=== PATIENT | male | born 1950 | race Caucasian/White ===

== ENCOUNTER 2017-04-09 09:34 | Emergency (ER) | payer OTHER, MEDICARE ==
[2017-04-09] MEDS ORDERED: LIDOCAINE 1% 100 MG in NS 100 ML IV ONE (09:49)
[2017-04-09] MEDS ORDERED: ONDANSETRON 4 MG/2 ML VIAL IVP ONE (09:49)
[2017-04-09] MEDS ORDERED: NS 1,000 ML IV ONE (09:49)
--- NOTE | 2017-04-09 09:52 | EDPHY ---
H & P Time Seen by Provider: 04/09/17 09:40 HPI/ROS: CHIEF COMPLAINT: Left flank pain HISTORY OF PRESENT ILLNESS: Patient awakened this morning because his dog was barking. He shortly thereafter noticed left flank pain which radiated into his groin and penis and was associated with a feeling of needing to urinate. Symptoms were severe and now is moderate. He had some dry heaving, but no diarrhea. No recent injury fall or trauma. Not better worse with position. REVIEW OF SYSTEMS: Eye: no change in vision ENT: no sore throat Cardiac: no chest pain or syncope Pulmonary: no cough or SOB Abdomen: HPI Musculoskeletal: HPI Skin: no rash Neuro: no headache, no weakness or numbness in extremities Constitutional: no fever : no urinary symptoms A comprehensive 10 point review of systems is otherwise negative aside from elements mentioned in the history of present illness. PAST MEDICAL HISTORY: Coronary disease with stenting, right hip replacement Family history: Negative for renal colic Social history: Nonsmoker General Appearance: Alert and conversant, cooperative. Eyes: No scleral icterus. ENT, Mouth: Normal mucous membranes. Respiratory: Normal respiratory effort, breath sounds equal, lungs are clear to auscultation. Cardiovascular: Regular rate and rhythm. Gastrointestinal: Abdomen is soft and non tender. Male normal. Neurological: Alert and oriented x3. Normally conversant. Face symmetric, normal movement and sensation in all extremities. Skin: Warm and dry, no rashes. No evidence of zoster on the left flank. Musculoskeletal: No peripheral edema and no joint swelling. Psychiatric: Not agitated. Emergency Department course/MDM: Lidocaine 100 mg IV, Toradol 15 mg IV, noncontrast CT scanning discussed and consented. Possibility of renal colic considered. 1150: Results discussed, likely passed a kidney stone. Much improved now without pain. 1555: Discussed with Cynthia at [facility] office, they will arrange followup of the CT findings. Smoking Status: Former smoker Constitutional: Initial Vital Signs Temperature (C) 36.2 C 04/09/17 09:40 Heart Rate 60 04/09/17 09:40 Respiratory Rate 16 04/09/17 09:40 Blood Pressure 125/84 H 04/09/17 09:40 O2 Sat (%) 97 04/09/17 09:40 O2 Delivery Mode Room Air Allergies/Adverse Reactions: No Known Allergies Allergy (Unverified 01/01/12 08:33) Home Medications: Medication Instructions Recorded Aspirin EC [Aspirin EC 81 mg (*)] 81 mg PO HS 01/10/16 Atorvastatin Calcium [Lipitor 80 80 mg PO HS 01/10/16 mg] Clopidogrel Bisulfate [Plavix (*)] 37.5 mg PO HS 01/10/16 Ezetimibe [Zetia 10 MG (*)] 10 mg PO HS 01/10/16 Herbals/Supplements -Info Only 1 ea PO DAILY 01/10/16 Metoprolol Tartrate [Lopressor 25 12.5 mg PO HS 01/10/16 mg (*)] Multivitamins W-Minerals [Thera M 1 tab PO DAILY 01/10/16 Plus Tablet (*)] Acetaminophen [Tylenol 325mg (*)] 325 - 650 mg PO Q6 PRN #0 tab 02/03/16 Medical Decision Making - Diagnostics Imaging Results: Imaging Impressions Abdomen/Pelvis CT 04/09/17 09:49 Impression: 1. Mild left hydronephrosis and hydroureter. No evidence for an obstructive calculus which may have already passed. A component of pyelonephritis cannot be excluded. Nonobstructive nephrolithiasis inferior pole left kidney. 2. 7.6 cm exophytic renal cortical cyst left kidney. It appears minimally complex with a mildly thickened wall. Consider follow up. 3. Moderate constipation. 4. Degenerative disk and degenerative joint disease lower lumbar spine. Results called and discussed with Lester Grossman at 11:24 a.m. on April 09, 2017. Attention: This CT examination is specifically designed to evaluate patients who are clinically suspected of having acute obstructive uropathy. This examination does not use radiographic contrast, and as such, provides only a limited evaluation of the abdomen, pelvis and retroperitoneum. If there is further clinical suspicion for pathological conditions other than obstructive uropathy, a complete CT evaluation of the abdomen and pelvis utilizing intravenous, oral, and rectal contrast should be considered. Differential Diagnosis: Differential considered including but not limited to kidney stone, aortic aneurysm, shingles, musculoskeletal. - Data Points Laboratory Results: 04/09/17 04/09/17 10:15 09:58 POC Hgb 16.7 gm/dL gm/dL (13.7-17.5) POC Hct 49 % % (40-51) POC Sodium 140 mEq/L mEq/L (134-144) POC Potassium 4.3 mEq/L mEq/L (3.3-5.0) POC Chloride 102 mEq/L mEq/L (97-110) POC BUN 23 mg/dL mg/dL (7-23) POC Creatinine 1.0 mg/dL mg/dL (0.7-1.3) POC Glucose 106 mg/dL H mg/dL (70-100) Urine Color YELLOW Urine Appearance HAZY Urine pH 7.0 (5.0-7.5) Ur Specific [place] 1.023 (1.002-1.030) Urine Protein NEGATIVE (NEGATIVE) Urine Ketones NEGATIVE (NEGATIVE) Urine Blood 3+ H (NEGATIVE) Urine Nitrate NEGATIVE (NEGATIVE) Urine Bilirubin NEGATIVE (NEGATIVE) Urine Urobilinogen NEGATIVE EU EU (0.2-1.0) Ur Leukocyte Esterase NEGATIVE (NEGATIVE) Urine RBC 50-182 /hpf H /hpf (0-3) Urine WBC 1-3 /hpf /hpf (0-3) Ur Epithelial Cells NONE SEEN /lpf /lpf (NONE-1+) Amorphous Sediment PRESENT /hpf /hpf (NONE-1+) Urine Mucus TRACE /lpf /lpf (NONE-1+) Urine Glucose NEGATIVE (NEGATIVE) Medications Given: Discontinued Medications Sodium Chloride (Ns) 1,000 mls @ 0 mls/hr IV EDNOW ONE; Wide Open PRN Reason: Protocol Stop: 04/09/17 09:50 Last Admin: 04/09/17 10:00 Dose: 1,000 mls Lidocaine HCl 100 mg/ Sodium (Chloride) 110 mls @ 600 mls/hr IV EDNOW ONE Stop: 04/09/17 09:59 Last Admin: 04/09/17 10:46 Dose: 110 mls Ketorolac Tromethamine (Toradol) 15 mg IVP EDNOW ONE Stop: 04/09/17 10:18 Last Admin: 04/09/17 10:43 Dose: 15 mg Ondansetron HCl (Zofran) 4 mg IVP EDNOW ONE Stop: 04/09/17 09:50 Last Admin: 04/09/17 10:03 Dose: 4 mg Promethazine HCl (Phenergan) 6.25 mg IVP ONCE ONE Stop: 04/09/17 10:41 Last Admin: 04/09/17 10:44 Dose: 6.25 mg Point of Care Test Results: 04/09/17 09:58 POC Sodium 140 POC Potassium 4.3 POC Chloride 102 POC BUN 23 POC Creatinine 1.0 POC Glucose 106 H Departure - Departure Disposition: Home, Routine, Self-Care Clinical Impression: Renal colic on left side Condition: Good Instructions: Renal Colic (ED) Additional Instructions: Strain urine as directed, bring any stone collected to Dr. Garcia's office. Referrals: Neal Garcia MD [Primary Care Provider] - As per Instructions (followup this week in the office)
[2017-04-09] MEDS ORDERED: KETOROLAC 15 MG/1 ML SDV IVP ONE (10:17)
[2017-04-09 10:27] LABS: COLOR YELLOW; LEUKOCYTE ESTERASE,URINE NEGATIVE (NEGATIVE); NITRITE,URINE NEGATIVE (NEGATIVE)
[2017-04-09 10:31] LABS: AMORPHOUS PRESENT /hpf (NONE-1+); MUCUS TRACE /lpf (NONE-1+); RBC,URINE 50-182 /hpf (0-3)
[2017-04-09] MEDS ORDERED: PROMETHAZINE HCL 25 MG/ML INJ IVP ONE (10:40)
[2017-04-09 12:09] VITALS: BP 121/89; PULSE 65; RESP 14; TEMP 98.4; O2SAT 95
== END 2017-04-09 12:11 | disposition home or self-care (01) ==
DX: N23 Unspecified renal colic (principal); E86.9 Volume depletion, unspecified; Z79.82 Long term (current) use of aspirin; Z87.891 Personal history of nicotine dependence
CPT/HCPCS: 74176; 96361; 96374; 96375; 99285; J1885; J2405; J2550; 82947-QW

== ENCOUNTER 2017-04-13 13:45 | Inpatient (IN) | payer OTHER, MEDICARE ==
[2017-04-13] MEDS ORDERED: HYDROmorphONE/DILAUDID 1 MG/ML SYR IVP ONE ×3 (14:54→18:18)
[2017-04-13 15:01] LABS: % IMMATURE GRANULYOCYTES 0.6 % (0.0-1.1); ABSOLUTE IMMATURE GRANULOCYTES 0.06 10^3/uL (0.00-0.10); ADD DIFF? NO; ADD MORPH? NO; ADD SCAN? NO; ATYPICAL LYMPHOCYTE FLAG 0 (0-99); FRAGMENT RBC FLAG 0 (0-99); HEMATOCRIT 46.6 % (40.0-51.0); HEMOGLOBIN 16.1 g/dL (13.7-17.5); LEFT SHIFT FLG 0 (0-99); LIPEMIA HEMOLYSIS FLAG 90 (0-99); MEAN CELL HEMOGLOBIN 31.6 pg (27.9-34.1); MEAN CELL HEMOGLOBIN CONCENTR. 34.5 g/dL (32.4-36.7); MEAN CELL VOLUME 91.6 fL (81.5-99.8); MEAN PLATELET VOLUME 9.5 fL (8.7-11.7); PLATELET CLUMPS FLAG 10 (0-99); PLATELET COUNT 166 10^3/uL (150-400); RED BLOOD CELL COUNT 5.09 10^6/uL (4.40-6.38); RED CELL DISTRIBUTION WIDTH 11.4 % (11.5-15.2)
--- NOTE | 2017-04-13 15:06 | EDPHY ---
H & P Smoking Status: Former smoker Time Seen by Provider: 04/13/17 14:38 HPI/ROS: CHIEF COMPLAINT: Left flank pain HISTORY OF PRESENT ILLNESS: 66-year-old male presents to the emergency department by private vehicle with left flank pain. The patient was seen in the emergency department 4 days ago and had evidence of hydronephrosis without evidence of ureteral calculi. He did have evidence of nephrolithiasis. He states that he has been having intermittent left flank pain since Sunday, for the last 5 days. The patient was seen by the urologist, Dr. Pipe Wilson on Sunday and was scheduled to have renal ultrasound and then this was changed to a CT urogram. Patient had laboratory studies drawn yesterday and had a creatinine 1.8 and they told him that they were unable to perform the CT urogram because of his elevated creatinine. No fevers or chills. He has urinated very little. He has been taking oxycodone and OxyContin for pain and has not had a bowel movement in almost 1 week. He is passing very little gas. No fevers or chills. No chest pain or difficulty breathing. No neck or back pain. REVIEW OF SYSTEMS: Constitutional: No fever, no chills. Eyes: No double or blurry vision. ENT: No sore throat. Respiratory: No cough, no shortness of breath. Cardiac: No chest pain. Gastrointestinal: No abdominal pain, vomiting or diarrhea. Genitourinary: No dysuria. Musculoskeletal: No neck or back pain. Skin: No rashes. Neurological: No headache. (Rere Krueger) Past Medical/Surgical History: Myocardial infarction with stents, orthopedic surgery (Rere Krueger) Social History: (Rere Krueger) Physical Exam: General Appearance: Alert, mild to moderate distress. Eyes: Pupils equal and round. Extraocular motions are all intact. ENT: Mouth: Mucous membranes moist. Respiratory: No wheezing, rhonchi, or rales, lungs are clear to auscultation. Cardiovascular: Regular rate and rhythm. Gastrointestinal: Abdomen is distended and nontender, no masses, no rebound or guarding, bowel sounds normal. Mild CVA tenderness on the left, none on the right. Neurological: Alert and oriented x 3, cranial nerves II through XII grossly intact Skin: Warm and dry, no rashes. Musculoskeletal: Nontender to palpate along the cervical, thoracic or lumbar spine. Neck is supple. Extremities: Full range of motion and no peripheral edema. Psychiatric: Patient is oriented X 3, there is no agitation. (Rere Krueger) Constitutional: Initial Vital Signs Temperature (C) 36.8 C 04/13/17 13:50 Heart Rate 95 04/13/17 13:50 Respiratory Rate 18 04/13/17 13:50 Blood Pressure 156/105 H 04/13/17 13:50 O2 Sat (%) 96 04/13/17 13:50 O2 Delivery Mode Room Air Allergies/Adverse Reactions: No Known Allergies Allergy (Verified 04/13/17 18:46) Home Medications: Medication Instructions Recorded Aspirin EC [Aspirin EC 81 mg (*)] 81 mg PO HS 01/10/16 Atorvastatin Calcium [Lipitor 80 80 mg PO HS 01/10/16 mg] Clopidogrel Bisulfate [Plavix (*)] 37.5 mg PO HS 01/10/16 Ezetimibe [Zetia 10 MG (*)] 10 mg PO HS 01/10/16 Herbals/Supplements -Info Only 1 ea PO DAILY 01/10/16 Metoprolol Tartrate [Lopressor 25 12.5 mg PO HS 01/10/16 mg (*)] oxyCODONE HCL [Oxycontin] 10 mg PO BID 04/13/17 oxyCODONE IR [Oxycodone Ir (*)] 5 mg PO Q4 PRN 04/13/17 Medical Decision Making - Diagnostics Imaging: Discussed imaging studies w/ quality systems technician Radiologist ED Course/Re-evaluation: CT scan of the Abdomen pelvis with out IV contrast. The results of the study are Hydronephrosis present entire Left Ureteral system. The study was read by Dr. Wellington. I viewed the images myself on the PACS system. Dr. Newton Wellington explains that this is the entire left-sided collecting system causing hydroureter. From the bladder backwards. He does look worse than the previous CT scan. I will touch base with Urology again about this patient's patient be admitted to the hospitalist service. At this time is hemodynamically stable no acute distress. 1813: I did speak with Dr. Lees with Urology. He will be glad to see and evaluate the patient. I did update him on the CT scan findings today as compared to his old CT scan. He does understand the hydronephrosis getting worse. And complete obstruction of the left ureter from bladder up. Patient is comfortable right nail and is agreeable for admission the hospital service. Dr. Junior has accepted. (Kenan Ross) 66-year-old male presents to the emergency department with severe left flank pain over last 1 week. He was seen in the emergency department on Sunday, 2016 for, and had a noncontrast CT scan which revealed mild hydronephrosis however no evidence of ureteral calculi. There was a left renal calculi noted. The patient followed up the following day with urologist, Dr. Wilson, and had an outpatient initially renal ultrasound ordered and this was then changed to a CT urogram. The patient had laboratory studies and was found to have a creatinine 1.8 and therefore he was told to reschedule his CT urogram. The patient has had continued intermittent severe left flank pain. He has no appetite. He has not had a bowel movement in at least 1 week he thinks likely from although narcotics he is taking from the pain. He has a same continued left flank pain. Urine reveals microscopic hematuria with 5-10 red blood cells. No signs of infection. I spoke with the on-call urologist, Dr. Lees, who recommended initially obtaining renal ultrasound. Renal ultrasound reveals persisting left hydronephrosis without evidence of calculi. The case was discussed with Dr. Kenan Ross who also evaluated the patient. Because the patient continued to have ongoing left flank pain, CT scan of the abdomen and pelvis without contrast was ordered. This is pending. The case was discussed with Dr. Puma Junior, hospitalist, who admit this patient for his ongoing severe left flank pain. Care will be turned over to Dr. Kenan Ross. (Rere Krueger) Differential Diagnosis: Including but not limited to renal colic, nephrolithiasis, obstructive uropathy , carcinoma, constipation (Rere Krueger) - Data Points Laboratory Results: Laboratory Results 04/13/17 14:18 04/13/17 14:18 Medications Given: Discontinued Medications Hydromorphone HCl (Dilaudid) 0.5 mg IVP EDNOW ONE Stop: 04/13/17 14:55 Last Admin: 04/13/17 15:06 Dose: 0.5 mg Hydromorphone HCl (Dilaudid) 1 mg IVP EDNOW ONE Stop: 04/13/17 15:37 Last Admin: 04/13/17 15:39 Dose: 1 mg Hydromorphone HCl (Dilaudid) 1 mg IVP EDNOW ONE Stop: 04/13/17 18:19 Last Admin: 04/13/17 18:20 Dose: 1 mg Sodium Chloride (Ns) 1,000 mls @ 0 mls/hr IV ONCE ONE PRN Reason: Wide Open Stop: 04/13/17 17:28 Last Admin: 04/13/17 17:55 Dose: 1,000 mls Lactated Ringer's (Lr) 1,000 mls @ 0 mls/hr IV ONCE ONE PRN Reason: As Directed Stop: 04/14/17 08:51 Last Admin: 04/14/17 09:21 Dose: Not Given Cefazolin Sodium 2 gm/ Sodium (Chloride) 100 mls @ 200 mls/hr IV ONCALL ONE PRN Reason: Protocol Stop: 04/14/17 10:10 Last Admin: 04/14/17 10:58 Dose: 100 mls Cefazolin Sodium/Dextrose (Ancef 2 Gm (Premix)) 100 mls @ 200 mls/hr IV ONCALL ONE Stop: 04/14/17 10:14 Last Admin: 04/14/17 19:24 Dose: Not Given Midazolam HCl (Versed) 2 mg IVP ONCALL ONE Stop: 04/14/17 09:34 Last Admin: 04/14/17 19:24 Dose: Not Given Pneumococcal 13-Valent Conj Vacc (Prevnar 13 Syringe) 0.5 ml IM .ONCE ONE Stop: 04/14/17 14:58 Last Admin: 04/14/17 15:46 Dose: 0.5 ml Departure - Departure Disposition: [facility] Clinical Impression: Acute kidney injury, Severe left flank pain Hydronephrosis Qualifiers: Hydronephrosis type: unspecified Qualified Code(s): N13.30 - Unspecified hydronephrosis Condition: Good
[2017-04-13 15:07] LABS: ANION GAP 15 mEq/L (8-16); CALCIUM 9.5 mg/dL (8.5-10.4); CARBON DIOXIDE 23 mEq/l (22-31); CHLORIDE 100 mEq/L (97-110); CREATININE 1.8 mg/dL (0.7-1.3); GLOMERULAR FILTRATION RATE 38; GLUCOSE 98 mg/dL (70-100); POTASSIUM 4.6 mEq/L (3.5-5.2); SODIUM 138 mEq/L (134-144)
[2017-04-13] MEDS ORDERED: HYDROmorphONE/DILAUDID 1 MG/ML SYR ONE (15:36)
[2017-04-13 16:13] LABS: COLOR AMBER; LEUKOCYTE ESTERASE,URINE NEGATIVE (NEGATIVE); NITRITE,URINE NEGATIVE (NEGATIVE)
[2017-04-13 16:16] LABS: MUCUS TRACE /lpf (NONE-1+)
[2017-04-13] MEDS ORDERED: NS 1,000 ML IV ONE (17:27)
[2017-04-13] MEDS ORDERED: PROMETHAZINE HCL 25 MG/ML INJ IVP PRN (18:44)
[2017-04-13] MEDS ORDERED: oxyCODONE IR 5 MG TAB PO PRN (18:44)
[2017-04-13] MEDS ORDERED: ACETAMINOPHEN 325 MG TAB PO PRN (18:44)
[2017-04-13] MEDS ORDERED: ONDANSETRON 4 MG/2 ML VIAL IVP PRN (18:44)
[2017-04-13] MEDS ORDERED: D5W 1/2 NS W/ 20 KCl/L 1,000 ML IV SCH (18:45)
[2017-04-13] MEDS ORDERED: BISACODYL 10 MG SUPP PR PRN (18:46)
[2017-04-13] MEDS ORDERED: LACTULOSE 20 GM/30 ML UDCUP PO PRN (18:46)
[2017-04-13] MEDS ORDERED: MAGNESIUM HYDROXIDE 30 ML UDCUP PO PRN (18:46)
--- NOTE | 2017-04-13 20:07 | GHP ---
[f rep st] HISTORY AND PHYSICAL DATE OF ADMISSION: 04/13/2017 CHIEF COMPLAINT: Left-sided flank pain. HISTORY OF PRESENT ILLNESS: This is a 66-year-old male with a history of coronary artery disease and 4 stents after a heart attack in 1998 who presented to the emergency department initially on Sunday with severe left-sided flank pain. The pain initially began on Sunday. On Sunday, he was seen in the emergency department, where it was thought that he had passed a stone since his CT revealed some hydronephrosis. He was sent home without pain medications since he was doing well. He saw his primary care provider on Sunday due to recurrent flank pain and was subsequently started on OxyContin and continued on oxycodone. He saw Dr. Pipe Wilson in his office on Sunday where CT urogram was ordered, however, this was not done due to rising creatinines. For the past few days, he has continued to have worsening left-sided chest pain that is described as sharp, severe in his left side that is not relieved with the OxyContin or oxycodone. He denies any blood in his urine. He has not had anything to eat since Sunday. He reports multiple episodes of dry heaves. He has not had a bowel movement since Sunday. He has not had any recorded fevers but has had some chills. PAST MEDICAL HISTORY: Coronary artery disease with 4 stents after a myocardial infarction in 1998. PAST SURGICAL HISTORY: 1. Right total hip arthroplasty. 2. Left shoulder surgery. 3. Nail surgery. 4. Squamous cell carcinoma excisions on the face. HOME MEDICATIONS: Reviewed. Refer to [facility] for details. ALLERGIES: No known drug allergies. SOCIAL HISTORY: He is a former smoker. He denies any significant alcohol use. He denies any illicit drug use. FAMILY HISTORY: Reviewed and noncontributory. REVIEW OF SYSTEMS: A comprehensive 10-point review of systems was done and is negative, except for as mentioned in the HPI. PHYSICAL EXAMINATION: VITAL SIGNS: Blood pressure 143/85, pulse of 90, respiratory rate 18, O2 saturation 95% on room air. Temperature afebrile. GENERAL: No acute distress. HEAD: Normocephalic, atraumatic. EYES: PERRLA. Sclerae anicteric. MOUTH: Moist mucous membranes. NECK: Supple. No lymphadenopathy. CARDIOVASCULAR: S1, S2, no JVD. No lower extremity edema. PULMONARY: Lungs are clear. No wheezes, rales, or rhonchi. ABDOMEN: Soft, mildly distended. Diminished bowel sounds. There is no guarding or rebound tenderness. EXTREMITIES: No clubbing or cyanosis. NEURO: Cranial nerves 2- 12 grossly intact. No focal motor or sensory deficits. SKIN: Clear, no rashes. DIAGNOSTICS: CT of the abdomen, which I reviewed, revealed progressive hydronephrosis of the left renal collecting system. The level of obstruction appears to be at the UVJ, possibly representing blood clot or mass. Abdominal ultrasound was reviewed, refer to report for details. WBC is 10.28, hemoglobin 16.1, hematocrit 46.6, platelets 166. Sodium 138, potassium 4.6, chloride 100, CO2 23, BUN 19, creatinine is 1.8, glucose 98. UA : 1+ ketones, 2+ blood, 5-10 rbc's, negative leukocyte esterase, negative nitrite. ASSESSMENT AND PLAN: This is a 66-year-old male presenting with severe left- sided flank pain that began on Sunday found to have: 1. Progressive hydronephrosis of unclear etiology. Plan: I discussed the case with Dr. Alexander Lees from urology who is recommending a ureteroscopy in the morning. I discussed nephrostomy tube placement which he felt was not indicated at this time since he does not have an active infection. For now, we will treat his pain supportively with IV narcotic pain medications, antiemetics , and IV fluids. 2. History of coronary artery disease, that appears to be stable. Plan: Will continue home dose of aspirin and Plavix. Since at this point, he would require a washout for the anti-platelet effect to wear off. 3. Acute kidney injury due to obstructive uropathy. Plan: As per above and avoid nephrotoxins. 4. Constipation. Plan: Bowel protocol, IV fluids, Enema prn /[id number]/MODL MTDD
[2017-04-13] MEDS ORDERED: NON-FORMULARY NEW DRUG (Atorvastatin Calcium [Lipitor 80 Mg] 80 MG) PO SCH (21:00)
[2017-04-13] MEDS: SENNOSIDES/DOCUSATE SODIUM TAB PO SCH (21:26)
[2017-04-13] MEDS: ASPIRIN EC 81 MG TAB PO SCH (21:26)
[2017-04-13] MEDS: CLOPIDOGREL BISULFATE 75 MG TAB PO SCH (21:26)
[2017-04-13] MEDS: METOPROLOL TARTRATE 25 MG TAB PO SCH (21:27)
[2017-04-13] MEDS: ATORVASTATIN CALCIUM 40 MG TAB PO SCH (21:29)
[2017-04-13] MEDS: EZETIMIBE 10 MG TAB PO SCH (21:29)
[2017-04-13] MEDS: HYDROmorphONE/DILAUDID 2 MG/ML INJ IVP PRN (21:37)
[2017-04-13] MEDS: POLYETHYLENE GLYCOL 3350 17 GM PKT PO PRN (22:44)
[2017-04-14] MEDS: HYDROmorphONE/DILAUDID 2 MG/ML INJ IVP PRN ×3 (00:53→08:04)
[2017-04-14 04:59] LABS: INR 1.15 (0.83-1.16); PROTIME(PATIENT) 14.7 SEC (12.0-15.0)
[2017-04-14 05:00] LABS: ANION GAP 8 mEq/L (8-16); CALCIUM 8.8 mg/dL (8.5-10.4); CARBON DIOXIDE 25 mEq/l (22-31); CHLORIDE 103 mEq/L (97-110); CREATININE 1.7 mg/dL (0.7-1.3); GLOMERULAR FILTRATION RATE 40; GLUCOSE 113 mg/dL (70-100); POTASSIUM 4.8 mEq/L (3.5-5.2); SODIUM 136 mEq/L (134-144)
[2017-04-14 05:00] LABS: APTT 29.3 SEC (23.0-38.0)
[2017-04-14] MEDS: SENNOSIDES/DOCUSATE SODIUM TAB PO SCH ×2 (08:05→20:50)
[2017-04-14] MEDS ORDERED: IOPAMIDOL (ISOVUE-M 300) 15 ML VIAL ONE (08:40)
[2017-04-14] MEDS ORDERED: LR 1,000 ML IV ONE (08:50)
[2017-04-14] MEDS ORDERED: Herbals/Supplements -Info Only PO SCH (09:00)
[2017-04-14] MEDS ORDERED: ENOXAPARIN 40 MG/0.4 ML SYR SC SCH (09:00)
--- NOTE | 2017-04-14 09:02 | PDCONSULT ---
Rolling Machine Tender Note: Requesting- [facility]- left flank pain HPI- 66 y/o man with ~5 day h/o severe left flank pain. No inciting factors. Initial CT demonstrated mild hydronephrosis and it was thought that he likely passed a stone. His symptoms continued and also include n/v and constipation. Pt returned to the ER were a CT demonstrated worsening hydro with dilation down to the UVJ. Creatinine mildly elevated. No fevers. No hematuria. PMH/PSH/MEDS/ALL/FH- Reviewed and summarized in chart. ROS- neg other than above. PE- AOX4 NCAT neck supple RRR nl respiratory effort abd s/nt/nd no edema A/P- Left hydronephrosis unclear etiology- ? ureteral tumor or stricture Left flank pain due to above elevated creatinine- likely multifactorial constipation PLAN for ureteroscopy and stent today. Extensive discussion of risks, benefits , and alternatives including need for stent removal Follow creatinine, hydration Bowel care.
--- NOTE | 2017-04-14 09:33 | PDANEPAE ---
ANE History of Present Illness 66 yo for ureteroscopy ANE Past Medical History - Cardiovascular History Hx Hypertension: Yes Hx Arrhythmias: No Hx Chest Pain: No Hx Coronary Artery / Peripheral Vascular Disease: Yes Hx CHF / Valvular Disease: No Hx Palpitations: No Cardiovascular History Comment: OR IN 1998. STENTS IN PLACE X4 - Pulmonary History Hx COPD: No Hx Asthma/Reactive Airway Disease: No Hx Recent Upper Respiratory Infection: No Hx Oxygen in Use at Home: No Hx Sleep Apnea: Yes Sleep Apnea Screening Result - Last Documented: Positive - Neurologic History Hx Cerebrovascular Accident: No Hx Seizures: No Hx Dementia: No - Endocrine History Hx Diabetes: No - Renal History Hx Renal Disorders: No - Liver History Hx Hepatic Disorders: No - Neurological & Psychiatric Hx Hx Neurological and Psychiatric Disorders: No - Cancer History Hx Cancer: No - Congenital Disorder History Hx Congenital Disorders: No - GI History Hx Gastrointestinal Disorders: No - Other Health History Other Health History: EASY BRUISES - Chronic Pain History Chronic Pain: No - Surgical History Prior Surgeries: 1 CARDIAC STENT OR 1998. 3 STENTS IN 2001. DEVIATED STEPTUM REPAIR. BASO CELL CARCINOMA 1998. R KNEE SCOPED. L SHOULDER REPAIR LAT TEAR ANE Review of Systems - Exercise capacity METS (RN): 4 METS ANE Patient History - Allergies Allergies/Adverse Reactions: No Known Allergies Allergy (Verified 04/13/17 18:46) - Home Medications Home medications: home medication list seen and reviewed Home Medications: Aspirin EC [Aspirin EC 81 mg (*)] 81 mg PO HS 01/10/16 [Last Taken 04/12/17] Atorvastatin Calcium [Lipitor 80 mg] 80 mg PO HS 01/10/16 [Last Taken 04/12/17] Clopidogrel Bisulfate [Plavix (*)] 37.5 mg PO HS 01/10/16 [Last Taken 04/12/17] Ezetimibe [Zetia 10 MG (*)] 10 mg PO HS 01/10/16 [Last Taken 04/12/17] Herbals/Supplements -Info Only 1 ea PO DAILY 01/10/16 [Last Taken 01/26/16] Metoprolol Tartrate [Lopressor 25 mg (*)] 12.5 mg PO HS 01/10/16 [Last Taken ] oxyCODONE HCL [Oxycontin] 10 mg PO BID 04/13/17 [Last Taken Unknown] oxyCODONE IR [Oxycodone Ir (*)] 5 mg PO Q4 PRN 04/13/17 [Last Taken Unknown] - NPO status NPO Since - Liquids (Date): 04/14/17 NPO Since - Liquids (Time): 08:00 NPO Since - Solids (Date): 04/11/17 NPO Since - Solids (Time): 08:00 - Smoking Hx Smoking Status: Former smoker ANE Labs/Vital Signs - Labs Result Diagrams: 04/13/17 14:18 04/14/17 04:31 - Vital Signs Blood Pressure: 127/88 Heart Rate: 79 Respiratory Rate: 14 O2 Sat (%): 95 Height: 5 ft 9 in Weight: 90.718 kg ANE Physical Exam - Airway Neck exam: FROM Mallampati Score: Class 2 Mouth exam: normal dental/mouth exam - Pulmonary Pulmonary: no respiratory distress - Cardiovascular Cardiovascular: regular rate and rhythym - ASA Status ASA Status: III ANE Anesthesia Plan Anesthesia Plan: general endotracheal anesthesia, GA w LMA
[2017-04-14] MEDS ORDERED: fentaNYL 100 MCG/2 ML INJ ONE (09:39)
[2017-04-14] MEDS ORDERED: PROPOFOL/EMULSION 500 MG/50 ML BOTTLE IV ONE (09:40)
[2017-04-14] MEDS ORDERED: ceFAZolin 2 GM in NS 100 ML IV ONE (09:41)
[2017-04-14] MEDS ORDERED: MIDAZOLAM 2 MG/2 ML VIAL ONE (09:45)
[2017-04-14] MEDS ORDERED: CEFAZOLIN 2 GM/DEXTROSE/100 ML BAG IV ONE (09:46)
[2017-04-14] MEDS ORDERED: SUGAMMADEX SODIUM 200 MG/2 ML VIAL IVP ONE (10:25)
[2017-04-14] MEDS ORDERED: ONDANSETRON 4 MG/2 ML VIAL IVP PRN (10:39)
[2017-04-14] MEDS ORDERED: NALOXONE HCL 0.4 MG/ML INJ IVP PRN (10:39)
[2017-04-14] MEDS ORDERED: fentaNYL 100 MCG/2 ML INJ IVP PRN ×2 (10:39)
[2017-04-14] MEDS ORDERED: PROMETHAZINE HCL 25 MG/ML INJ IVP PRN (10:39)
--- NOTE | 2017-04-14 10:41 | POSTANESTH ---
Post Anesthetic Evaluation Cardiovascular Status: Normal, Stable Respiratory Status: Tx Decrease in SpO2 Level of Consciousness/Mental Status: Alert and Oriented Pain Control: Adequate, Prn Tx Ordered Nausea/Vomiting Control: Adequate, Prn Tx Ordered Complications Possibly Related to Anesthesia: None Noted
--- NOTE | 2017-04-14 10:49 | POSTOPPROG ---
Post Op Note Date of Operation: 04/14/17 Surgeon: Tyler Lees Hr Systems Analyst: none Anesthesia: GET(General Endotracheal) Pre-op Diagnosis: left hydronephrosis Post-op Diagnosis: same Indication: left hydronephrosis Procedure: cysto, left retrograde pyelogram, dilation of ureter, stent placement Inf/Abcess present in the surg proc area at time of surgery?: No EBL: Minimal Specimen(s): none
--- NOTE | 2017-04-14 11:52 | HOSPPROG ---
Hospitalist Progress Note Assessment/Plan: 66y male with c/o left flank pain. First encounter, chart reviewed. D/W RN. #Hydronephrosis appreciate Dr Lees consult uteroscopy performed today stent placed will watch over night and repeat labs and US in am #SUNNI unclear etiol await uteroscopy report #Pain cont supportive treatment avoid narcs if possible #Constipation BM today cont bowel therapy #HX CAD stable #Dispo unclear, cont supportive care repeat labs and studies in am Subjective: No discomfort currently. at bedside. No specific complaints. Objective: Vital Signs Temp Pulse Resp BP Pulse Ox 36.8 C 80 16 122/79 H 97 04/14/17 11:27 04/14/17 11:27 04/14/17 11:27 04/14/17 11:27 04/14/17 11:27 Laboratory Results 04/14/17 04:31 04/13/17 04/14/17 04/15/17 05:59 05:59 05:59 Intake Total 1000 650 Output Total 0 Balance 1000 650 PT 14.7 SEC (12.0-15.0) 04/13/17 04:31 INR 1.15 (0.83-1.16) 04/13/17 04:31 - Physical Exam Constitutional: no apparent distress, appears nourished, not in pain Eyes: PERRL, anicteric sclera, EOMI Ears, Nose, Mouth, Throat: moist mucous membranes, hearing normal, ears appear normal Cardiovascular: regular rate and rhythym, No JVD, No edema Respiratory: no respiratory distress, no rales or rhonchi, reduced air movement Gastrointestinal: normoactive bowel sounds, soft, non-tender abdomen, distension , No ascites Skin: warm, normal color, No erythema Musculoskeletal: normal joint ROM, no joint effusions, generalized weakness Neurologic: AAOx3 Psychiatric: interacting appropriately, not anxious, not encephalopathic, thought process linear ICD10 Worksheet Patient Problems: Problems Problem Status Onset Primary localized osteoarthritis of right hip Acute
[2017-04-14] MEDS ORDERED: PNEUMOC 13-VAL CONJ-DIP CRM/PF 0.5 ML SYR IM ONE (14:57)
[2017-04-14] MEDS: ceFAZolin 2 GM/DEXTROSE 100 ML IV ONE ×2 (15:13→19:24)
[2017-04-14] MEDS: MIDAZOLAM 2 MG/2 ML VIAL IVP ONE ×2 (15:13→19:24)
[2017-04-14 19:40] VITALS: RESP 16
[2017-04-14] MEDS: CLOPIDOGREL BISULFATE 75 MG TAB PO SCH (20:51)
[2017-04-14] MEDS: ATORVASTATIN CALCIUM 40 MG TAB PO SCH (20:51)
[2017-04-14] MEDS: METOPROLOL TARTRATE 25 MG TAB PO SCH (20:52)
[2017-04-14] MEDS: EZETIMIBE 10 MG TAB PO SCH (20:52)
[2017-04-14] MEDS: ASPIRIN EC 81 MG TAB PO SCH (20:52)
--- NOTE | 2017-04-14 22:05 | GOP ---
[f rep st] OPERATIVE REPORT DATE OF OPERATION: 04/14/2017 SURGEON: Josr Lees MD SCIENTIFIC PUBLICATIONS EDITOR: None. PREOPERATIVE DIAGNOSIS: Left hydronephrosis. POSTOPERATIVE DIAGNOSIS: 1. Left hydronephrosis. 2. Possible left ureteral stricture. PROCEDURE PERFORMED: 1. Cystoscopy. 2. Left ureteroscopy. 3. Dilation of left ureter. 4. Placement of left ureteral stent. FINDINGS: DESCRIPTION OF PROCEDURE: After informed consent was obtained, he was taken to the operating room w here he was given general anesthesia. He was placed in the low lithotomy position with special atte ntion to padding all bony prominences. His genitals were prepped and draped in sterile fashion. Cy stoscopy was performed with 12 and 70-degree lenses. The prostate showed moderate hypertrophy with a small median lobe. 70-degree of the bladder did not demonstrate any tumors or stones. He did hav e some mild bladder trabeculation. At this point, a retrograde pyelogram was obtained by inserting an open-ended catheter into the left ureter. The distal area of the ureter was somewhat tapered; ho wever, there was minimal hydroureter and minimal hydronephrosis. At this point, I placed a guidewir e and coiled it in the left renal pelvis. I attempted to perform ureteroscopy, but I had a hard christopher e intubating the left ureter. Therefore, the ureter was dilated, passing a ureteral access sheath b eyond the area of narrowing within the ureter. Once this was complete, I was able to perform semi-r igid ureteroscopy up to the level of the UPJ. There were no tumors, stones, or other abnormalities identified. At this point, the scope was removed. A 4.7 x 24 cm stent was placed. Fluoroscopic co nfirmation of appropriate placement was performed. The bladder was drained. He was reversed from a nesthesia and sent to the recovery room in stable condition. There were no complications, no specim ens, and no blood loss. The patient will follow up with Dr. Wilson for stent removal. INDICATIONS FOR PROCEDURE: The patient is a 66-year-old gentleman who had severe left flank pain as well as microhematuria. He came to the emergency room where a CT scan demonstrated mild left hydro nephrosis but no stone. He saw Dr. Wilson who felt that he likely passed a stone. However, the pat ient had worsening left flank pain associated with severe constipation. He came back to the emergen cy room where a CT demonstrated mild worsening of his hydronephrosis. Given these findings, I recom mended ureteroscopic evaluation. Preoperatively, I had a very lengthy discussion of risks, benefits , and alternatives with him and he did provide informed consent. /[id number]/MODL
[2017-04-15 05:09] LABS: ANION GAP 14 mEq/L (8-16); CALCIUM 9.5 mg/dL (8.5-10.4); CARBON DIOXIDE 24 mEq/l (22-31); CHLORIDE 103 mEq/L (97-110); GLOMERULAR FILTRATION RATE > 60; GLUCOSE 118 mg/dL (70-100); POTASSIUM 4.7 mEq/L (3.5-5.2); SODIUM 141 mEq/L (134-144)
[2017-04-15] MEDS: POLYETHYLENE GLYCOL 3350 17 GM PKT PO PRN (07:51)
[2017-04-15] MEDS: SENNOSIDES/DOCUSATE SODIUM TAB PO SCH (07:51)
[2017-04-15 08:06] VITALS: BP 119/66; PULSE 84; TEMP 98.1; O2SAT 95
--- NOTE | 2017-04-15 18:21 | GDS ---
[f rep st] DISCHARGE SUMMARY DISCHARGE DIAGNOSES: 1. Left-sided flank pain. 2. Left-sided hydronephrosis. 3. Acute kidney injury. 4. Constipation. 5. History of coronary artery disease. CONSULTATIONS: Dr. Lees of Urology. STUDIES AND PROCEDURES DONE: 1. Abdominal and pelvic ultrasound. 2. CT of the abdomen and pelvis. 3. Ureteroscopy. 4. Repeat abdominal ultrasound. PHYSICAL EXAMINATION: GENERAL: The patient is alert. VITAL SIGNS: Afebrile at 36.7, pulse is 84, respiratory rate 16, blood pressure is 119/66, he is saturating 95% on room air. I have seen and e valuated the patient on the day of discharge. HOSPITAL COURSE: The patient is a 66-year-old male, who presented to the emergency room with compla ints of left-sided flank pain. He was evaluated and diagnosed with left ureteral stricture. During this hospitalization, he received a consultation from Dr. Lees of Urology. A uropathy ureterosc opy was performed with no stents or tumor identified. Please refer to surgical report for further d etails. The ureter was dilated and a stent was placed. The patient's hydronephrosis has resolved. His acute kidney injury is resolved, and his left-sided flank pain is gone. He will follow up with Dr. Wilson in the outpatient setting to develop a plan of care and stent removal. I have educated the patient that there was no stone tumor identified per the operative report. He understands the i mportance of following up with Dr. Wilson to develop a further plan of care. There are no pending s tudies. DISCHARGE MEDICATIONS: Please refer to EMR form. I have not provided the patient any prescriptions at the time of disposition. DISCHARGE INSTRUCTIONS: Followup will be as soon as possible with Dr. Wilson. The patient will als o follow up with his primary care physician, Dr. Roger Garcia. I have spent greater than 35 minutes in the care, coordination, and management of the patient's disp osition. /[id number]/MODL
== END 2017-04-15 10:03 | disposition home or self-care (01) | DRG 694 ==
LOC: F3E 18:34 → OBSVTOIN 18:43
PROVIDERS: ADMIT Family Medicine; ATTEND Family Medicine
PROC: 0T778DZ Dilation of Left Ureter with Intraluminal Device, Via Natural or Artificial Opening Endoscopic (ICD-10-PCS; principal; 2017-04-14 10:00)
DX: N13.1 Hydronephrosis with ureteral stricture, not elsewhere classified (principal); N17.9 Acute kidney failure, unspecified; K59.00 Constipation, unspecified; I25.10 Atherosclerotic heart disease of native coronary artery without angina pectoris; I25.2 Old myocardial infarction; I10 Essential (primary) hypertension; Z23 Encounter for immunization; Z96.641 Presence of right artificial hip joint; Z95.5 Presence of coronary angioplasty implant and graft; Z85.820 Personal history of malignant melanoma of skin
CPT/HCPCS: 96374; C1758; C1769; C1894; C2625; G0009; J0690; J1170; J2250; J2704; J3010; Q9967

== ENCOUNTER → 2017-12-04 | Outpatient (CLI) | payer OTHER, MEDICARE | LOC: FIMAGING 15:59 | PROVIDERS: ATTEND Specialist | DX: N20.0 Calculus of kidney (principal) ==

== ENCOUNTER → 2018-06-20 | Outpatient (CLI) | payer OTHER, MEDICARE | LOC: BMCIMAGING 09:48 | DX: J98.11 Atelectasis (principal); I51.7 Cardiomegaly; Z95.1 Presence of aortocoronary bypass graft ==

== ENCOUNTER → 2018-07-03 | Outpatient (CLI) | payer OTHER, MEDICARE | LOC: FIMAGING 13:02 | PROVIDERS: ATTEND Specialist | DX: N20.0 Calculus of kidney (principal) ==

== ENCOUNTER 2018-09-03 13:15 | Emergency (ER) | payer OTHER, MEDICARE ==
--- NOTE | 2018-09-03 13:33 | EDPHY ---
H & P Time Seen by Provider: 09/03/18 13:27 HPI/ROS: Chief complaint. High blood pressure HPI. 68-year-old male presents with elevated blood pressure today. This morning he felt somewhat fatigued and checked his blood pressure at home and found the systolic to be about 170. He then checked his blood pressure every 10 min and hypertension continued. He saw his PCP and was found to have elevated blood pressure and was sent to the department for evaluation. He has no chest pain or shortness of breath. No headache. No vision change. No abdominal pain. No fever or cough. No unusual leg pain or swelling. He finished amiodarone and warfarin 1 week ago. Patient had a coronary artery bypass graft in [facility] 12 weeks ago. Apparently no history of hypertension. He does take Lopressor 12.5 mg at bedtime. ROS 10 systems were reviewed and negative with the exception of the elements mentioned in the history of present illness Past Medical/Surgical History: Past medical history significant for hip replacement, mi in 1998, 4 vessel coronary artery bypass graft 12 weeks ago. Social History: , nonsmoker, no alcohol Smoking Status: Former smoker Physical Exam: General Appearance: Alert well-developed male mild distress vital signs significant for initial blood pressure 158/91. Repeat blood pressure about 10 min later was 170/97 Eyes: Pupils equal and round no pallor or injection. ENT, Mouth: Mucous membranes are moist. Respiratory: There are no retractions, lungs are clear to auscultation. Cardiovascular: Regular rate and rhythm. Gastrointestinal: Abdomen is soft and nontender, no masses, bowel sounds normal. Neurological: Awake and alert, sensory and motor exams grossly normal. Skin: Warm and dry, no rashes. Musculoskeletal: Neck is supple nontender. Extremities symmetrical, full range of motion. Psychiatric: Patient is oriented X 3, there is no agitation. Constitutional: Initial Vital Signs Temperature (C) 36.6 C 09/03/18 13:24 Heart Rate 72 09/03/18 13:24 Respiratory Rate 16 09/03/18 13:24 Blood Pressure 158/91 H 09/03/18 13:24 O2 Sat (%) 97 09/03/18 13:24 O2 Delivery Mode Room Air Allergies/Adverse Reactions: No Known Allergies Allergy (Verified 09/03/18 13:23) Home Medications: Medication Instructions Recorded Aspirin EC [Aspirin EC 81 mg (*)] 81 mg PO HS 01/10/16 Atorvastatin Calcium [Lipitor 80 80 mg PO HS 01/10/16 mg] Ezetimibe [Zetia 10 MG (*)] 10 mg PO HS 01/10/16 Metoprolol Tartrate [Lopressor 25 12.5 mg PO HS 01/10/16 mg (*)] Medical Decision Making - Diagnostics EKG Interpretation: EKG interpreted by me shows normal sinus rhythm normal interval. Evidence of old anterior ME. Left axis deviation. QRS otherwise normal. No significant ST elevation or depression. No arrhythmia. The rate is 75 EKG unchanged from previous EKG December 2011 Imaging Results: The one-view chest x-ray interpreted by me and shows no acute findings. No significant change from previous chest x-ray 3 months ago Procedures: IV normal saline, monitor. Patient is given Lopressor 25 mg orally in the emergency department ED Course/Re-evaluation: Re-evaluation 2:00 p.m.. Patient is stable. Current blood pressure is 133/83 Re-evaluation 2:55 p.m.. Blood pressure is 120/76 with heart rate 61 The patient, his , and I discussed imaging, EKG, laboratory evaluation. We discussed treatment plan including criteria for return importance of follow-up and further evaluation. He expresses understanding and agreement Differential Diagnosis: I considered acute coronary syndrome, congestive heart failure, pneumonia. The patient was feeling somewhat fatigued this morning so checked his blood pressure and found to be elevated and then subsequently was checking it repeatedly and it remained high. However pressure has now returned to very normal levels without management. Workup is normal. - Data Points Laboratory Results: Laboratory Results 09/03/18 13:34 09/03/18 13:34 09/03/18 09/03/18 09/03/18 13:37 13:34 13:34 WBC RBC Hgb Hct MCV MCH MCHC RDW Plt Count MPV Neut % (Auto) Lymph % (Auto) [place] % (Auto) Eos % (Auto) Baso % (Auto) Nucleat RBC Rel Count Absolute Neuts (auto) Absolute Lymphs (auto) Absolute Monos (auto) Absolute Eos (auto) Absolute Basos (auto) Absolute Nucleated RBC Immature Gran % Immature Gran # PT 13.7 SEC SEC (12.0-15.0) INR 1.03 (0.83-1.16) APTT 25.7 SEC SEC (23.0-38.0) Sodium 141 mEq/L mEq/L (135-145) Potassium 4.6 mEq/L mEq/L (3.5-5.2) Chloride 108 mEq/L mEq/L (97-110) Carbon Dioxide 23 mEq/l mEq/l (22-31) Anion Gap 10 mEq/L mEq/L (6-14) BUN 20 mg/dL mg/dL (7-23) Creatinine 1.0 mg/dL mg/dL (0.7-1.3) Estimated GFR > 60 Glucose 104 mg/dL H mg/dL (70-100) Calcium 9.3 mg/dL mg/dL (8.5-10.4) POC Troponin I 0.00 ng/mL ng/mL (0.00-0.08) NT-Pro-B Natriuret Pep 191 pg/mL H pg/mL (0-125) 09/03/18 13:34 WBC 6.86 10^3/uL 10^3/uL (3.80-9.50) RBC 5.12 10^6/uL 10^6/uL (4.40-6.38) Hgb 15.0 g/dL g/dL (13.7-17.5) Hct 46.4 % % (40.0-51.0) MCV 90.6 fL fL (81.5-99.8) MCH 29.3 pg pg (27.9-34.1) MCHC 32.3 g/dL L g/dL (32.4-36.7) RDW 13.3 % % (11.5-15.2) Plt Count 203 10^3/uL 10^3/uL (150-400) MPV 9.1 fL fL (8.7-11.7) Neut % (Auto) 66.2 % % (39.3-74.2) Lymph % (Auto) 22.9 % % (15.0-45.0) [place] % (Auto) 9.0 % % (4.5-13.0) Eos % (Auto) 1.3 % % (0.6-7.6) Baso % (Auto) 0.3 % % (0.3-1.7) Nucleat RBC Rel Count 0.0 % % (0.0-0.2) Absolute Neuts (auto) 4.54 10^3/uL 10^3/uL (1.70-6.50) Absolute Lymphs (auto) 1.57 10^3/uL 10^3/uL (1.00-3.00) Absolute Monos (auto) 0.62 10^3/uL 10^3/uL (0.30-0.80) Absolute Eos (auto) 0.09 10^3/uL 10^3/uL (0.03-0.40) Absolute Basos (auto) 0.02 10^3/uL 10^3/uL (0.02-0.10) Absolute Nucleated RBC 0.00 10^3/uL 10^3/uL (0-0.01) Immature Gran % 0.3 % % (0.0-1.1) Immature Gran # 0.02 10^3/uL 10^3/uL (0.00-0.10) PT INR APTT Sodium Potassium Chloride Carbon Dioxide Anion Gap BUN Creatinine Estimated GFR Glucose Calcium POC Troponin I NT-Pro-B Natriuret Pep Medications Given: Discontinued Medications Sodium Chloride (Ns) 500 mls @ 0 mls/hr IV EDNOW ONE; Wide Open PRN Reason: Protocol Stop: 09/03/18 13:46 Last Admin: 09/03/18 14:03 Dose: 500 mls Metoprolol Tartrate (Lopressor) 25 mg PO EDNOW ONE Stop: 09/03/18 13:47 Last Admin: 09/03/18 14:33 Dose: Not Given Point of Care Test Results: Chemistry 09/03/18 13:37 POC Troponin I 0.00 ng/mL ng/mL (0.00-0.08) Departure - Departure Disposition: Home, Routine, Self-Care Clinical Impression: Hypertension Qualifiers: Hypertension type: unspecified Qualified Code(s): I10 - Essential (primary) hypertension Condition: Good Instructions: Hypertension (ED) Additional Instructions: Continue regular medications. Check your blood pressure 1 time daily and keep a record. Return for chest discomfort, trouble breathing. Re-evaluation 2-3 days for further blood pressure evaluation. Referrals: WANG CASTILLO MD [Primary Care Provider] - 2-3 days, call for appt.
[2018-09-03] MEDS ORDERED: NS 500 ML IV ONE (13:45)
[2018-09-03] MEDS ORDERED: METOPROLOL TARTRATE 25 MG TAB PO ONE (13:46)
--- NOTE | 2018-09-03 13:51 | CPEKG ---
Test Reason : OPEN Blood Pressure : / mmHG Vent. Rate : 075 BPM Atrial Rate : 075 BPM P-R Int : 194 ms QRS Dur : 107 ms QT Int : 425 ms P-R-T Axes : 062 -36 054 degrees QTc Int : 475 ms Sinus rhythm Left axis deviation Probable anteroseptal infarct, old Confirmed by Edwin Edmond ([id number]) on 09/03/2018 1:50:30 PM Referred By: Confirmed By:Edwin Edmond
[2018-09-03 14:01] LABS: PLATELET COUNT 203 10^3/uL (150-400)
[2018-09-03 14:09] LABS: INR 1.03 (0.83-1.16); PROTIME(PATIENT) 13.7 SEC (12.0-15.0)
[2018-09-03 14:49] VITALS: BP 120/76
== END 2018-09-03 15:11 | disposition home or self-care (01) ==
DX: I10 Essential (primary) hypertension (principal); Z95.5 Presence of coronary angioplasty implant and graft; Z79.899 Other long term (current) drug therapy
CPT/HCPCS: 84484-PO